=== PATIENT | male | born 1985 | race Caucasian/White ===

== ENCOUNTER 2016-07-07 23:13 | Emergency (ER) | payer OTHER ==
[2016-07-07 23:13] VITALS: BMI 33.0
--- NOTE | 2016-07-07 23:34 | C.PDOC ---
History Of Present Illness patient presents with left testicular pain radiating in to the left flank since yesterday. denies any trauma, heavy lifting. No f/c/n/v. No penile discharge Time Seen by Provider: 07/07/16 23:34 Chief Complaint (Nursing): Male Genitourinary History Per: Patient History/Exam Limitations: no limitations Onset/Duration Of Symptoms: Days (1) Current Symptoms Are (Timing): Still Present Severity: Mild Pain Scale Rating Of: 3 Quality Of Discomfort: Dull, Aching Associated Symptoms: denies: Fever, Chills, Nausea, Urinary Symptoms Alleviating Factors: None Recent travel outside of the [place]: No Additional History Per: Patient Past Medical History Reviewed: Historical Data, Nursing Documentation, Vital Signs Vital Signs: Last Vital Signs Temp 99.0 F 07/08/16 03:18 Pulse 78 07/08/16 03:18 Resp 18 07/08/16 03:18 BP 146/94 H 07/08/16 03:18 Pulse Ox 97 07/08/16 03:30 Family History: States: No Known Family Hx - Social History Hx Tobacco Use: No Hx Alcohol Use: Yes Hx Substance Use: No - Immunization History Hx Tetanus Toxoid Vaccination: No Hx Influenza Vaccination: No Hx Pneumococcal Vaccination: No Review Of Systems Constitutional: Negative for: Fever, Chills Respiratory: Negative for: Shortness of Breath Gastrointestinal: Positive for: Abdominal Pain. Negative for: Nausea, Vomiting Genitourinary: Positive for: Scrotal Pain. Negative for: Dysuria, Penile Discharge, Penile Pain Musculoskeletal: Positive for: Back Pain Skin: Negative for: Rash, Lesions, Jaundice Neurological: Negative for: Weakness Psych: Negative for: Anxiety Physical Exam - Physical Exam Appears: Non-toxic, No Acute Distress Skin: Warm, Dry Gastrointestinal/Abdominal: Soft, Tenderness (mild left flank tenderness), No Distention, No Guarding, No Rebound Male Genital: Testicular Tenderness (mild left), No Testicular Swelling, No Inguinal Tenderness, No Inguinal Swelling, No Scrotal Swelling, No Circumcised Extremity: Normal ROM Extremity: Bilateral: Atraumatic, Normal Color And Temperature Neurological/Psych: Oriented x3, Normal Speech, Normal Cognition Gait: Steady ED Course And Treatment - Laboratory Results Result Diagrams: 07/07/16 23:52 07/07/16 23:52 O2 Sat by Pulse Oximetry: 97 Pulse Ox Interpretation: Normal - Other Rad CT abd/pelvis with IV contrast X-Ray: Read By Radiologist Interpretation: IMPRESSION: 1. Possible mild enteritis. Clinical correlation is needed. 2. Incidental/non-acute findings are described above. - CT Scan/US US of scrotum Other Rad Studies (CT/US): Read By Radiologist, Radiology Report Reviewed CT/US Interpretation: IMPRESSION: 1. Small bilateral varicoceles. 2. Mild scrotal swelling. 3. 3 mm left epididymal head cyst. Progress Note: blood work, ivf, testicular US Reevaluation Time: 03:33 Reassessment Condition: Improved Medical Decision Making Medical Decision Making: Upon provider reevaluation patient is feeling better, is medically stable, and requires no further treatment in the ED at this time. Patient will be discharged home with Rx for flagyl. Counseling was provided and all questions were answered regarding diagnosis and need for follow up with the referred clinic. There is agreement to discharge plan. Return if symptoms persist or worsen. Disposition Counseled Patient/Family Regarding: Studies Performed, Diagnosis, Need For Followup - Disposition Referrals: [facility] [Outside] [facility] [Outside] Disposition: HOME/ ROUTINE Disposition Time: 23:34 Condition: FAIR Additional Instructions: Please return if symptoms recur Prescriptions: Metronidazole [Flagyl] 500 mg PO TID #21 tab Instructions: Abdominal Pain (ED), Enteritis (ED) - Clinical Impression Clinical Impression: Abdominal pain, Enteritis
[2016-07-07] MEDS ORDERED: Sodium Chloride 0.9% 1,000 ML IV ONE (23:37)
[2016-07-07 23:55] LABS: MEAN CORPUSCULAR HEMOGLOBIN 26.3 pg (27.0-31.0); MEAN PLATELET VOLUME 9.9 fL (7.2-11.7); WHITE BLOOD COUNT 3.4 K/uL (4.8-10.8)
[2016-07-07] MEDS ORDERED: Sodium Chloride 0.9% 1,000 ML ONE (23:58)
[2016-07-07 23:59] LABS: RBC URINE < 1 /hpf (0-3); URINE BACTERIA RARE (<OCC); URINE BILIRUBIN NEGATIVE (NEGATIVE); URINE BLOOD NEGATIVE (NEGATIVE); URINE COLOR Yellow (YELLOW); URINE GLUCOSE (UA) NORMAL (Normal); URINE KETONE TRACE mg/dL (NEGATIVE); URINE LEUKOCYTE ESTERASE NEG Leu/uL (Negative); URINE PROTEIN 1+ mg/dL (NEGATIVE); URINE UROBILINOGEN NORMAL mg/dL (0.2-1.0); WBC URINE < 1 /hpf (0-5)
[2016-07-08 00:02] LABS: BASO % 1.1 % (0.0-2.0); EOS % 0.6 % (0.0-4.0); HEMATOCRIT 45.3 % (35.0-51.0); LYMPH # 0.9 K/uL (1.0-4.3); MEAN CELL VOLUME 81.4 fL (80.0-94.0); MEAN CORPUSCULAR HGB CONC 32.3 g/dL (33.0-37.0); MONO # 0.8 K/uL (0.0-0.8); MONO % 22.8 % (0.0-10.0); PLATELET COUNT 150 K/uL (130-400); RED CELL DISTRIBUTION WIDTH 14.6 % (11.5-14.5)
[2016-07-08 00:03] LABS: CHLORIDE 93 mmol/L (98-107)
[2016-07-08 00:04] LABS: POTASSIUM 3.4 mmol/L (3.6-5.2); SODIUM 133 mmol/L (132-148)
[2016-07-08 00:06] LABS: ALB/GLOB RATIO 1.2 (1.0-2.1); ALKALINE PHOSPHATASE 73 U/L (38-126); AST/SGOT 32 U/L (17-59); BILIRUBIN,TOTAL 0.3 mg/dL (0.2-1.3); BLOOD UREA NITROGEN 16 mg/dL (9-20); CARBON DIOXIDE 26 mmol/L (22-30); GFR AFRICAN-AMERICAN > 60; TOTAL PROTEIN 7.8 g/dL (6.3-8.3)
[2016-07-08 00:07] LABS: ALT/SGPT 34 U/L (21-72); CALCIUM 8.5 mg/dl (8.6-10.4); GLUCOSE,RANDOM 92 mg/dL (75-110)
[2016-07-08 01:17] LABS: EOSINOPHIL 1 % (0-4); NEUTROPHIL 47 % (50-75); TOTAL CELLS COUNTED 100
[2016-07-08] MEDS ORDERED: Iodixanol 320 MG/ML 100 ML BOTTLE IV ONE (03:00)
--- NOTE | 2016-07-08 03:18 | CT ---
EXAM: CT Abdomen and Pelvis With Intravenous Contrast CLINICAL HISTORY: 30 years old, male; Pain; Abdominal pain; Localized; Left lower quadrant (llq); Additional info: Left abd pain TECHNIQUE: Axial computed tomography images of the abdomen and pelvis with intravenous contrast. This CT exam was performed using one or more of the following dose reduction techniques: automated exposure control, adjustment of the mA and/or kV according to patient size, and/or use of iterative reconstruction technique. Coronal and sagittal reformatted images were created and reviewed. CONTRAST: 100 mL of visipaque administered intravenously. COMPARISON: No relevant prior studies available. FINDINGS: Lower thorax: Probable small hiatal hernia. ABDOMEN: Liver: Unremarkable. No mass. Gallbladder and bile ducts: No calcified stones. No ductal dilation. Pancreas: No ductal dilation. No mass. Spleen: No splenomegaly. Adrenals: No mass. Kidneys and ureters: No mass. No hydronephrosis. Stomach and bowel: Apparent mild mural thickening of few jejunal loops. No associated inflammatory stranding. No obstruction. Appendix: Normal caliber. No inflammation. PELVIS: Bladder: Unremarkable. Reproductive: Unremarkable as visualized. ABDOMEN and PELVIS: Intraperitoneal space: No significant fluid collection. No free air. Bones/joints: No acute fracture. Soft tissues: Tiny umbilical hernia containing fat. Vasculature: Unremarkable. No abdominal aortic aneurysm. Lymph nodes: No pathologically enlarged lymph nodes. IMPRESSION: 1. Possible mild enteritis. Clinical correlation is needed. 2. Incidental/non-acute findings are described above.
[2016-07-08 03:19] VITALS: BP 146/94; PULSE 78; RESP 18; TEMP 99
[2016-07-08 03:31] VITALS: O2SAT 97
--- NOTE | 2016-07-08 10:28 | US ---
HISTORY: scrotal pain , left testicular pain TECHNIQUE: Realtime sonography through the scrotum with color and doppler flow. COMPARISON: None Available. FINDINGS: RIGHT TESTICLE: Measures 3.6 x 1.7 x 2.9 cm. Punctate calcifications seen. Otherwise Normal echotexture and flow. RIGHT EPIDIDYMIS: Epididymal head measures 1 x 1 x 1.2 cm. Punctate calcification seen. Otherwise grossly unremarkable appearance with normal flow. LEFT TESTICLE: Measures 3.3 x 1.5 x 2.8 cm. Normal echotexture and flow. LEFT EPIDIDYMIS: Epididymal head measures 0.8 x 0.3 x 1.1 cm. There is small epididymal cyst measures 0.3 x 0.3 x 0.3 centimeter. HYDROCELE: None. VARICOCELE: Mild bilateral varicoceles seen OTHER FINDINGS: None. IMPRESSION: No evidence of testicular torsion. Mild scrotal soft tissue swelling. Microcalcifications seen in both testes. Small cyst at the left epididymal head. Bilateral mild varicocele. Preliminary report was submitted by virtual Radiology.
== END 2016-07-08 03:54 | disposition home or self-care (01) ==
LOC: C.ER 23:13
DX: K52.9 Noninfective gastroenteritis and colitis, unspecified (principal); R10.32 Left lower quadrant pain
CPT/HCPCS: 74177; 76870; 80053; 81001; 83690; 85025; 96374; 99284; J1885; J7040; Q9967

== ENCOUNTER 2016-11-12 01:45 | Emergency (ER) | payer OTHER ==
[2016-11-12 01:45] VITALS: BMI 33.0
[2016-11-12 02:12] VITALS: RESP 20
[2016-11-12] MEDS ORDERED: Aspirin 325 mg EC Tablets PO STA (02:41)
[2016-11-12] MEDS ORDERED: Sodium Chloride 0.9% 1,000 ML IV ONE (02:41)
[2016-11-12] MEDS ORDERED: Alum-Mag Hydrox-Simethicone Susp (30 mL) PO STA (02:42)
[2016-11-12] MEDS ORDERED: Aluminum Hydroxide/Magnesium Hydroxide Susp (30 mL) ONE (03:02)
[2016-11-12] MEDS ORDERED: Sodium Chloride 0.9% 1,000 ML ONE (03:02)
[2016-11-12 03:13] LABS: BASO % 0.8 % (0.0-2.0); EOS # 0.1 K/uL (0.0-0.7); EOS % 1.4 % (0.0-4.0); HEMOGLOBIN 13.4 g/dL (12.0-18.0); LYMPH # 1.1 K/uL (1.0-4.3); LYMPH % 28.6 % (20.0-40.0); MEAN CELL VOLUME 82.7 fL (80.0-94.0); MEAN CORPUSCULAR HGB CONC 32.7 g/dL (33.0-37.0); MONO # 0.3 K/uL (0.0-0.8); MONO % 7.4 % (0.0-10.0); NEUT # 2.5 K/uL (1.8-7.0); NEUT % 61.8 % (50.0-75.0); RBC 4.97 Mil/uL (4.40-5.90)
[2016-11-12 03:16] LABS: ALBUMIN 3.9 g/dL (3.5-5.0)
[2016-11-12 03:19] LABS: ALB/GLOB RATIO 1.2 (1.0-2.1); ALT/SGPT 33 U/L (21-72); AST/SGOT 24 U/L (17-59); BLOOD UREA NITROGEN 12 mg/dL (9-20); GFR AFRICAN-AMERICAN > 60; GFR NON-AFRICAN AMERICAN > 60
[2016-11-12 03:20] LABS: CALCIUM 8.8 mg/dl (8.6-10.4)
--- NOTE | 2016-11-12 03:20 | C.PDOC ---
History Of Present Illness drinking alcohol and using cocaine today, burning chest sensation while sitting on sofa watching TV no radiation, no SOB + s/s RICKY Time Seen by Provider: 11/12/16 02:38 Chief Complaint (Nursing): Chest Pain History Per: Patient History/Exam Limitations: no limitations Onset/Duration Of Symptoms: Mins Current Symptoms Are (Timing): Better Context: Food Severity: Mild Pain Scale Rating Of: 2 Quality: Burning Exacerbating Factors: None Alleviating Factors: None Past Medical History Reviewed: Historical Data, Nursing Documentation, Vital Signs Vital Signs: Last Vital Signs Temp 98.7 F 11/12/16 03:48 Pulse 78 11/12/16 03:48 Resp 20 11/12/16 03:48 BP 147/85 11/12/16 03:48 Pulse Ox 99 11/12/16 04:42 Surgical History: No Surg Hx Family History: States: Unknown Family Hx - Social History Hx Tobacco Use: No Hx Alcohol Use: Yes Hx Substance Use: No - Immunization History Hx Tetanus Toxoid Vaccination: No Hx Influenza Vaccination: No Hx Pneumococcal Vaccination: No Review Of Systems Except As Marked, All Systems Reviewed And Found Negative. Constitutional: Positive for: Other (+RICKY) Physical Exam - Physical Exam Appears: Other (large, obese, thick neck) Skin: Normal Color Chest: Symmetrical Cardiovascular: Rhythm Regular Respiratory: Normal Breath Sounds Gastrointestinal/Abdominal: Normal Exam Neurological/Psych: Oriented x3 ED Course And Treatment - Laboratory Results Result Diagrams: 11/12/16 03:04 11/12/16 03:04 Lab Interpretation: Abnormal (trop and d-dimer neg, tox cocaine+) ECG: Interpreted By Ak ECG Rhythm: Sinus Tachycardia ECG Interpretation: Abnormal Rate From EC O2 Sat by Pulse Oximetry: 99 Pulse Ox Interpretation: Normal - Radiology CXR: Interpreted by Me CXR Interpretation: Yes: No Acute Disease Progress Note: 0300: esophageal burning relieved by Protonix/Maalox Reevaluation Time: 04:33 Reassessment Condition: Improved Medical Decision Making Medical Decision Makin: Maalox PO and protonix IV, s/s improved GERD, no ACS, RICKY needs eval and CPAP higher risk of ACS w comorbidities and cocaine abuse Disposition Doctor Will See Patient In The: Office Counseled Patient/Family Regarding: Studies Performed, Diagnosis - Disposition Referrals: Dk Linares MD [Staff Provider] - Georges Guerra MD [Staff Provider] - Disposition: HOME/ ROUTINE Disposition Time: 03:23 Condition: GOOD Additional Instructions: GERD: Protonix 20 mg daily to lower stomach acid GERD diet Maalox 30 cc (one tablespoon) 5x/day as needed for burning esophageal symptoms Loose weight Sleep Apnea: Call Dr. Linares to make appointment for a Sleep Study- he is a sleep staffing specialist and lung specialist Will help with weight loss, hypertension, heart damage, and daytime concentration Prescriptions: Pantoprazole Sodium [Protonix] 20 mg PO DAILY #30 ect Instructions: Sleep Apnea Syndrome (ED), Gastroesophageal Reflux Disease (ED) Forms: [facility] (Haitian), Work Excuse - Clinical Impression Clinical Impression: Chest discomfort, RICKY (obstructive sleep apnea), GERD (gastroesophageal reflux disease), Cocaine abuse
[2016-11-12 03:25] LABS: BENZODIAZEPINES, UR NEGATIVE (NEGATIVE)
[2016-11-12 03:26] LABS: BARBITURATES, UR NEGATIVE (NEGATIVE)
[2016-11-12 03:27] LABS: B-TYPE NATRIURETIC PEPTIDE 33.4 pg/mL (0-450)
[2016-11-12 03:28] LABS: OPIATES, UR NEGATIVE (NEGATIVE)
[2016-11-12 03:29] LABS: PHENCYCLIDINE, UR NEGATIVE (NEGATIVE)
[2016-11-12 03:49] VITALS: BP 147/85; PULSE 78; TEMP 98.7
[2016-11-12 04:34] VITALS: O2SAT 99
--- NOTE | 2016-11-12 09:08 | RAD ---
PROCEDURE: CHEST RADIOGRAPH, 1 VIEW HISTORY: Shortness of breath COMPARISON: None available. FINDINGS: LUNGS: No focal infiltrate or effusion. Small punctate nodular density at the left lung apex may represent confluence of shadows with overlying ribs. PLEURA: No pneumothorax or pleural fluid seen. CARDIOVASCULAR: Normal. OSSEOUS STRUCTURES: No significant abnormalities. VISUALIZED UPPER ABDOMEN: Normal. OTHER FINDINGS: None. IMPRESSION: No active disease.
--- NOTE | 2016-11-12 10:53 | CARD ---
APPROVED REPORT EKG Measurement Heart [id number] <Conclusion> Sinus tachycardia Otherwise normal ECG
== END 2016-11-12 04:46 | disposition home or self-care (01) ==
LOC: C.ER 01:45
DX: G47.33 Obstructive sleep apnea (adult) (pediatric) (principal); R07.9 Chest pain, unspecified; K21.9 Gastro-esophageal reflux disease without esophagitis; F14.10 Cocaine abuse, uncomplicated
CPT/HCPCS: 71010; 80053; 80320; 80324; 80345; 80346; 80349; 80353; 80358; 80361; 83880; 83992; 84484; 85025; 85378; 93005; 96361; 96374; 99284; C9113; J7040

== ENCOUNTER 2016-11-28 22:28 | Emergency (ER) | payer OTHER ==
[2016-11-28 22:29] VITALS: BMI 33.0
[2016-11-28 22:42] VITALS: TEMP 98.3
--- NOTE | 2016-11-28 22:50 | C.PDOC ---
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 This evening he suddenly noticed his heart was beating fast. He had a pounding in his chest associated with a full feeling. He denied shortness of breath, dizziness or nausea. He was not lightheaded. He went outside to rest but symptoms persisted. He denies any similar symptoms in the past. He has no recent URI symptoms or cough. He was recently evaluated in the ED and in follow up by Dr Flores and a cooking instructor for chest pain. he was started on Metoprolol but did not like the way it made him feel. He initially stopped the medication but was advised to restart it and try to taper off. He takes 1/2 a tablet a day. Time Seen by Provider: 11/28/16 22:41 Chief Complaint (Nursing): Palpitations History Per: Patient History/Exam Limitations: no limitations Onset/Duration Of Symptoms: Hrs Current Symptoms Are (Timing): Still Present Severity: Moderate Quality: Dull, Tightness Associated Symptoms: denies: Nausea, Dyspnea, Diaphoresis, Syncope Alleviating Factors: None Past Medical History Vital Signs: Last Vital Signs Temp 98.3 F 11/28/16 22:39 Pulse 65 11/28/16 23:28 Resp 10 L 11/28/16 23:28 BP 137/87 11/28/16 22:39 Pulse Ox 99 11/28/16 23:28 - Medical History PMH: No Chronic Diseases Surgical History: No Surg Hx Family History: States: Unknown Family Hx - Social History Hx Tobacco Use: No Hx Alcohol Use: Yes Hx Substance Use: No - Immunization History Hx Tetanus Toxoid Vaccination: No Hx Influenza Vaccination: No Hx Pneumococcal Vaccination: No Review Of Systems Except As Marked, All Systems Reviewed And Found Negative. Constitutional: Negative for: Fever Cardiovascular: Positive for: Chest Pain, Palpitations Respiratory: Negative for: Cough, Shortness of Breath, Pleuritic Pain, Wheezing Gastrointestinal: Negative for: Nausea, Abdominal Pain Physical Exam - Physical Exam Appears: Well, No Acute Distress Skin: Normal Color, Warm, Dry, No Diaphoretic Head: Atraumatic Eye(s): bilateral: Normal Inspection, PERRL, EOMI Oral Mucosa: Moist Chest: Symmetrical, No Deformity, No Tenderness Cardiovascular: Rhythm Regular, No Edema, No Murmur, No JVD Respiratory: Normal Breath Sounds, No Rales, No Rhonchi, No Wheezing Gastrointestinal/Abdominal: Normal Exam, Bowel Sounds, Soft, No Tenderness, No Distention, No Guarding Pulses: Left Carotid: Normal, Right Carotid: Normal Neurological/Psych: Oriented x3, Normal Speech, Normal Cognition, Normal Motor, Normal Sensation ED Course And Treatment - Laboratory Results Result Diagrams: 11/28/16 22:59 11/28/16 22:59 Lab Interpretation: Normal ECG: Interpreted By Me ECG Rhythm: Sinus Rhythm ECG Interpretation: No Acute Changes O2 Sat by Pulse Oximetry: 100 Pulse Ox Interpretation: Normal Reevaluation Time: 23:52 Reassessment Condition: Improved (heart rate 70. No chest pain) Disposition Counseled Patient/Family Regarding: Studies Performed, Diagnosis, Need For Followup - Disposition Referrals: Shaik Flores MD [Staff Provider] - Disposition: HOME/ ROUTINE Disposition Time: 23:52 Condition: STABLE Additional Instructions: Continue the Metoprolol until discussed with Cardiology Instructions: Palpitations (ED) Forms: [facility] (Ukrainian), Work Excuse - Clinical Impression Clinical Impression: Palpitations
[2016-11-28] MEDS ORDERED: Sodium Chloride 0.9% 1,000 ML IV ONE (22:52)
[2016-11-28] MEDS ORDERED: Sodium Chloride 0.9% 1,000 ML ONE (22:58)
[2016-11-28 23:03] LABS: BASO # 0.1 K/uL (0.0-0.2); BASO % 1.3 % (0.0-2.0); EOS # 0.2 K/uL (0.0-0.7); EOS % 4.2 % (0.0-4.0); HEMATOCRIT 42.6 % (35.0-51.0); LYMPH # 1.5 K/uL (1.0-4.3); LYMPH % 28.1 % (20.0-40.0); MEAN CELL VOLUME 82.4 fL (80.0-94.0); MEAN CORPUSCULAR HEMOGLOBIN 26.9 pg (27.0-31.0); MEAN CORPUSCULAR HGB CONC 32.7 g/dL (33.0-37.0); MEAN PLATELET VOLUME 10.1 fL (7.2-11.7); MONO # 0.6 K/uL (0.0-0.8); MONO % 12.1 % (0.0-10.0); NRBC % 0.1 % (0.0-2.0); RED CELL DISTRIBUTION WIDTH 14.1 % (11.5-14.5); WHITE BLOOD COUNT 5.3 K/uL (4.8-10.8)
[2016-11-28 23:08] LABS: CHLORIDE 100 mmol/L (98-107); POTASSIUM 3.6 mmol/L (3.6-5.2); SODIUM 135 mmol/L (132-148)
[2016-11-28 23:10] LABS: GFR AFRICAN-AMERICAN > 60
[2016-11-28 23:11] LABS: ALB/GLOB RATIO 1.4 (1.0-2.1); ALKALINE PHOSPHATASE 77 U/L (38-126); ALT/SGPT 32 U/L (21-72); AST/SGOT 17 U/L (17-59); BILIRUBIN,TOTAL 0.4 mg/dL (0.2-1.3); BLOOD UREA NITROGEN 19 mg/dL (9-20); CALCIUM 8.5 mg/dl (8.6-10.4); CARBON DIOXIDE 22 mmol/L (22-30); GLUCOSE,RANDOM 86 mg/dL (75-110); TOTAL PROTEIN 7.2 g/dL (6.3-8.3)
[2016-11-28 23:42] LABS: THYROID STIMULATING HORMONE 1.68 mIU/L (0.46-4.68)
[2016-11-28 23:52] VITALS: O2SAT 100
[2016-11-29 00:24] VITALS: BP 122/91; PULSE 60; RESP 12
--- NOTE | 2016-11-30 12:38 | CARD ---
APPROVED REPORT EKG Measurement Heart [id number] <Conclusion> Normal sinus rhythm Cannot rule out Anterior infarct, age undetermined Abnormal ECG
== END 2016-11-29 00:05 | disposition home or self-care (01) ==
LOC: C.ER 22:28
DX: R00.2 Palpitations (principal)
CPT/HCPCS: 80053; 84443; 85025; 85378; 93005; 96360; 99285; J7040

== ENCOUNTER 2017-01-06 11:21 | Emergency (ER) | payer OTHER ==
[2017-01-06 11:36] VITALS: BMI 35.1
[2017-01-06 12:24] LABS: BASO # 0.1 K/uL (0.0-0.2); BASO % 1.1 % (0.0-2.0); EOS # 0.3 K/uL (0.0-0.7); EOS % 6.2 % (0.0-4.0); HEMATOCRIT 43.2 % (35.0-51.0); LYMPH # 1.1 K/uL (1.0-4.3); MEAN CELL VOLUME 82.9 fL (80.0-94.0); MEAN CORPUSCULAR HEMOGLOBIN 27.5 pg (27.0-31.0); MEAN CORPUSCULAR HGB CONC 33.2 g/dL (33.0-37.0); MEAN PLATELET VOLUME 9.7 fL (7.2-11.7); MONO # 0.8 K/uL (0.0-0.8); MONO % 14.6 % (0.0-10.0); RED CELL DISTRIBUTION WIDTH 14.8 % (11.5-14.5); WHITE BLOOD COUNT 5.1 K/uL (4.8-10.8)
--- NOTE | 2017-01-06 12:48 | RAD ---
PROCEDURE: CHEST RADIOGRAPH, 1 VIEW HISTORY: chest pain COMPARISON: None available. FINDINGS: LUNGS: Clear. PLEURA: No pneumothorax or pleural fluid seen. CARDIOVASCULAR: Normal. OSSEOUS STRUCTURES: No significant abnormalities. VISUALIZED UPPER ABDOMEN: Normal. OTHER FINDINGS: None. IMPRESSION: No active disease.
--- NOTE | 2017-01-06 13:04 | C.PDOC ---
History Of Present Illness 31 year old male presents to the ED for evaluation of sudden onset of palpitations which began early this morning. Patient describes his symptoms as his "heart jumping out of his chest." Patient reports the palpitations woke him from his sleep. Patient also notes associated dizziness which occurs while walking. Patient reports the episode lasted a few minutes and then resolved. Patient reports he is asymptomatic currently in the ED. He denies chest pain, shortness of breath, cough, nausea, vomiting, extremity numbness/weakness. Time Seen by Provider: 01/06/17 11:32 Chief Complaint (Nursing): Chest Pain History Per: Patient History/Exam Limitations: no limitations Onset/Duration Of Symptoms: Mins Current Symptoms Are (Timing): Gone Quality: denies: "Pain" Associated Symptoms: denies: Nausea Additional History Per: Patient Past Medical History Reviewed: Historical Data, Nursing Documentation, Vital Signs Vital Signs: Last Vital Signs Temp Pulse 52 L 01/06/17 13:10 Resp 20 01/06/17 13:10 BP 140/84 01/06/17 13:10 Pulse Ox 100 01/06/17 14:14 - Medical History PMH: No Chronic Diseases Surgical History: No Surg Hx Family History: States: Unknown Family Hx - Social History Hx Tobacco Use: No Hx Alcohol Use: Yes (few drinks per day/daily) Hx Substance Use: No - Immunization History Hx Tetanus Toxoid Vaccination: No Hx Influenza Vaccination: No Hx Pneumococcal Vaccination: No Review Of Systems Cardiovascular: Positive for: Palpitations. Negative for: Chest Pain Respiratory: Negative for: Cough, Shortness of Breath Gastrointestinal: Negative for: Nausea, Vomiting Neurological: Positive for: Dizziness. Negative for: Weakness, Numbness Physical Exam - Physical Exam Appears: Non-toxic, No Acute Distress Skin: Normal Color, Warm, Dry, No Rash Head: Atraumatic, Normacephalic Eye(s): bilateral: Normal Inspection, PERRL, EOMI Oral Mucosa: Moist Throat: No Erythema, No Exudate Neck: Supple Chest: Symmetrical, No Deformity, No Tenderness Cardiovascular: Rhythm Regular, No Murmur, No JVD Respiratory: Normal Breath Sounds, No Rales, No Rhonchi, No Wheezing Gastrointestinal/Abdominal: Bowel Sounds (active), Soft, No Tenderness Extremity: Normal ROM, No Calf Tenderness, Capillary Refill (less than 2 seconds ), No Swelling Pulses: Left Radial: Normal, Right Radial: Normal, Left Dorsalis Pedis: Normal, Right Dorsalis Pedis: Normal Neurological/Psych: Oriented x3, Normal Speech, Normal Cognition, Normal Motor, Normal Sensation Gait: Steady ED Course And Treatment - Laboratory Results Result Diagrams: 01/06/17 12:17 10 12:17 ECG: Interpreted By Me, Viewed By Me ECG Rhythm: Sinus Rhythm Interpretation Of ECG: Normal Sinus Rhythm at rate 83bpm. Rate From EC (bpm) O2 Sat by Pulse Oximetry: 100 Pulse Ox Interpretation: Normal - Other Rad CXR X-Ray: Interpreted by Me, Viewed By Me, Read By Radiologist Interpretation: PROCEDURE: CHEST RADIOGRAPH, 1 VIEW. HISTORY: chest pain. COMPARISON: None available. FINDINGS: LUNGS: Clear. PLEURA: No pneumothorax or pleural fluid seen. CARDIOVASCULAR: Normal. OSSEOUS STRUCTURES: No significant abnormalities. VISUALIZED UPPER ABDOMEN: Normal. OTHER FINDINGS: None. IMPRESSION: No active disease. Medical Decision Making Medical Decision Making: Plan: * CXR * EKG * reassess and diposition Progress: The patient was in SR and (-) ectopy, on the cafeteria monitor. On re-exam, the patient reports improvement of symptoms. Lungs are CTA, heart is RRR, abdomen is soft, non-tender and tolerating PO well. Ambulatory in the ED steady. Follow up with the medical doctor within 1-2 days. Return if worsened. Disposition - Disposition Referrals: [facility] [Outside] Disposition: HOME/ ROUTINE Disposition Time: 14:12 Condition: GOOD Additional Instructions: Follow up with the medical doctor within 1-2 days. Return if worsened. 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 - Scribe Statement The provider has reviewed the documentation as recorded by the Scribe (Anastacia Dowell) All medical record entries made by the Scribe were at my direction and personally dictated by me. I have reviewed the chart and agree that the record accurately reflects my personal performance of the history, physical exam, medical decision making, and the department course for this patient. I have also personally directed, reviewed, and agree with the discharge instructions and disposition.
[2017-01-06 13:11] VITALS: RESP 20
[2017-01-06 13:22] LABS: CHLORIDE 98 mmol/L (98-107)
[2017-01-06 13:23] LABS: POTASSIUM 4.4 mmol/L (3.6-5.2); SODIUM 134 mmol/L (132-148)
[2017-01-06 13:25] LABS: ALB/GLOB RATIO 1.3 (1.0-2.1); ALKALINE PHOSPHATASE 62 U/L (38-126); AST/SGOT 35 U/L (17-59); BILIRUBIN,TOTAL 0.5 mg/dL (0.2-1.3); CARBON DIOXIDE 25 mmol/L (22-30); GFR AFRICAN-AMERICAN > 60
[2017-01-06 13:26] LABS: ALT/SGPT 39 U/L (21-72); BLOOD UREA NITROGEN 18 mg/dL (9-20); CALCIUM 8.8 mg/dl (8.6-10.4); GLUCOSE,RANDOM 91 mg/dL (75-110)
[2017-01-06 13:55] VITALS: BP 140/84; PULSE 52
[2017-01-06 14:14] VITALS: O2SAT 100
--- NOTE | 2017-01-08 18:45 | CARD ---
APPROVED REPORT EKG Measurement Heart [id number] [place] 154P54 [id number] <Conclusion> Normal sinus rhythm with sinus arrhythmia Normal ECG
== END 2017-01-06 14:22 | disposition home or self-care (01) ==
LOC: C.ER 11:21
DX: R00.2 Palpitations (principal)

== ENCOUNTER 2017-07-03 08:31 | Emergency (ER) | payer OTHER ==
[2017-07-03 08:31] VITALS: BMI 35.1
[2017-07-03 08:40] VITALS: RESP 20; TEMP 97.5
--- NOTE | 2017-07-03 09:04 | C.PDOC ---
History Of Present Illness 31 y/o male with history of Anxiety presents to ED with complaints of sob, palpitations and chest pain while driving son to school this morning. Patient reports he sometimes has high blood pressure but denies taking any medication. Patient is speaking in full sentences and denies cough, fever, chills, nausea, vomiting or any other complaints at this time. Time Seen by Provider: 07/03/17 08:34 Chief Complaint (Nursing): Chest Pain History Per: Patient History/Exam Limitations: no limitations Onset/Duration Of Symptoms: Hrs Current Symptoms Are (Timing): Still Present Past Medical History Reviewed: Historical Data, Nursing Documentation, Vital Signs Vital Signs: Last Vital Signs Temp 97.5 F L 07/03/17 08:39 Pulse 87 07/03/17 10:09 Resp 20 07/03/17 10:09 BP 149/95 H 07/03/17 10:09 Pulse Ox 98 07/03/17 10:27 - Medical History PMH: Anxiety Surgical History: No Surg Hx Family History: States: No Known Family Hx - Social History Hx Tobacco Use: No Hx Alcohol Use: Yes (few drinks per day/daily) Hx Substance Use: Yes - Immunization History Hx Tetanus Toxoid Vaccination: No Hx Influenza Vaccination: No Hx Pneumococcal Vaccination: No Review Of Systems Constitutional: Negative for: Fever, Chills Cardiovascular: Positive for: Chest Pain, Palpitations Respiratory: Positive for: Shortness of Breath. Negative for: Cough Gastrointestinal: Negative for: Nausea, Vomiting Skin: Negative for: Rash Physical Exam - Physical Exam Appears: Non-toxic, No Acute Distress Skin: Warm, Dry, No Rash Head: Atraumatic, Normacephalic Eye(s): bilateral: Normal Inspection Oral Mucosa: Moist Neck: Normal ROM, Supple Cardiovascular: Rhythm Regular Respiratory: Normal Breath Sounds, No Rales, No Rhonchi, No Wheezing Gastrointestinal/Abdominal: Soft, No Tenderness, No Guarding, No Rebound Extremity: Normal ROM, Capillary Refill (<2 seconds) Neurological/Psych: Oriented x3, Normal Speech ED Course And Treatment - Laboratory Results Result Diagrams: 07/03/17 09:11 07/03/17 09:11 Lab Interpretation: Normal ECG: Interpreted By De ECG Rhythm: Sinus Rhythm ECG Interpretation: No Acute Changes Rate From EC O2 Sat by Pulse Oximetry: 98 (RA) Pulse Ox Interpretation: Normal - Radiology CXR: Interpreted by Me CXR Interpretation: Yes: No Acute Disease Progress Note: CXR, ECG, Blood work, UA ordered Reassessment Condition: Improved Disposition Counseled Patient/Family Regarding: Studies Performed, Diagnosis, Need For Followup - Disposition Referrals: [facility] [Outside] [facility] [Outside] Disposition: HOME/ ROUTINE Disposition Time: 10:40 Condition: STABLE Additional Instructions: Return to ED if any increase symptoms Instructions: Palpitations (DC) Forms: [employer] [facility] (Bruneian), Work Excuse - POA Present On Arrival: None - Clinical Impression Clinical Impression: Palpitations - 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 - Scribe Statement The provider has reviewed the documentation as recorded by the Scriblamin Mosher All medical record entries made by the Shuiblamin were at my direction and personally dictated by me. I have reviewed the chart and agree that the record accurately reflects my personal performance of the history, physical exam, medical decision making, and the department course for this patient. I have also personally directed, reviewed, and agree with the discharge instructions and disposition.
--- NOTE | 2017-07-03 09:08 | RAD ---
HISTORY: SOB COMPARISON: Chest radiograph dated 01/06/2017 TECHNIQUE: Chest PA and lateral FINDINGS: LUNGS: No active pulmonary disease. PLEURA: No significant pleural effusion identified. No pneumothorax apparent. CARDIOVASCULAR: Normal. OSSEOUS STRUCTURES: No significant abnormalities. VISUALIZED UPPER ABDOMEN: Normal. OTHER FINDINGS: None. IMPRESSION: No active disease.
[2017-07-03 09:14] LABS: EOS # 0.3 K/uL (0.0-0.7); EOS % 7.1 % (0.0-4.0); HEMOGLOBIN 14.6 g/dL (12.0-18.0); LYMPH # 1.2 K/uL (1.0-4.3); LYMPH % 25.1 % (20.0-40.0); MEAN CELL VOLUME 84.5 fL (80.0-94.0); MEAN CORPUSCULAR HEMOGLOBIN 28.2 pg (27.0-31.0); MEAN CORPUSCULAR HGB CONC 33.4 g/dL (33.0-37.0); MEAN PLATELET VOLUME 9.7 fL (7.2-11.7); MONO # 0.5 K/uL (0.0-0.8); MONO % 11.3 % (0.0-10.0); NEUT # 2.6 K/uL (1.8-7.0); NEUT % 55.5 % (50.0-75.0); NRBC % 0.1 % (0.0-2.0); RBC 5.17 Mil/uL (4.40-5.90); RED CELL DISTRIBUTION WIDTH 14.9 % (11.5-14.5); WHITE BLOOD COUNT 4.7 K/uL (4.8-10.8)
[2017-07-03 09:32] LABS: ALB/GLOB RATIO 1.2 (1.0-2.1); ALBUMIN 4.3 g/dL (3.5-5.0); ALT/SGPT 22 U/L (21-72); AST/SGOT 26 U/L (17-59); BLOOD UREA NITROGEN 16 mg/dL (9-20); GFR AFRICAN-AMERICAN > 60; GFR NON-AFRICAN AMERICAN > 60; LIPASE 77 U/L (23-300)
[2017-07-03 09:42] LABS: CK-MB 1.14 ng/mL (0.0-3.38)
[2017-07-03 09:45] LABS: URINE BILIRUBIN NEGATIVE (NEGATIVE); URINE BLOOD NEGATIVE (NEGATIVE); URINE CLARITY Clear (Clear); URINE COLOR Yellow (YELLOW); URINE GLUCOSE (UA) NORMAL (Normal); URINE LEUKOCYTE ESTERASE NEG Leu/uL (Negative); URINE PROTEIN NEGATIVE (NEGATIVE); URINE UROBILINOGEN NORMAL mg/dL (0.2-1.0)
[2017-07-03 10:09] VITALS: BP 149/95; PULSE 87
[2017-07-03 10:28] VITALS: O2SAT 98
--- NOTE | 2017-07-04 15:02 | CARD ---
APPROVED REPORT EKG Measurement Heart [id number] [place] [id number] <Conclusion> Normal sinus rhythm with sinus arrhythmia Left anterior fascicular block Abnormal ECG
== END 2017-07-03 10:46 | disposition home or self-care (01) ==
LOC: C.ER 08:31
DX: R00.2 Palpitations (principal)

== ENCOUNTER 2017-10-11 11:22 | Emergency (ER) | payer OTHER ==
[2017-10-11 11:26] VITALS: BMI 35.4
[2017-10-11 11:31] VITALS: RESP 18; O2SAT 100
--- NOTE | 2017-10-11 12:08 | C.PDOC ---
History Of Present Illness 32yo male with no past medical history, comes to ER for evaluation stating he has "fluttering in chest." Patient states he has been overly concerned about cardiac problems for some time. Patient has been to [facility] ER multiple times over the past 3 years and 2x this year with cardiac complaints; patient has had EKG and labs done which were all normal. He states he has followed up with a parts room associate, had a stress test and an echocardiogram, which were both normal. PAtient also had a halter monitor test but does not have the results on hand. He states he measures his "EKG" on a phone joy and is concerned he might have "PVC's" or arrhythmia; patient also states his heart rate is in the low 50' s in the morning and is high during the end of the day. Patient states he started a new exercise program, stopped drinking alcohol and smoking cigarettes as well; he does admit to using marijuana. Patient denies any fever, chills, chest pain, shortness of breath, weakness, dizziness. He has no other complaints. Time Seen by Provider: 10/11/17 11:32 Chief Complaint (Nursing): Chest Pain History Per: Patient History/Exam Limitations: no limitations Onset/Duration Of Symptoms: Persistent Current Symptoms Are (Timing): Still Present Associated Symptoms: denies: Nausea, Dyspnea, Diaphoresis, Syncope Additional History Per: Patient Past Medical History Reviewed: Historical Data, Nursing Documentation, Vital Signs Vital Signs: Last Vital Signs Temp 98.8 F 10/11/17 11:26 Pulse 82 10/11/17 11:26 Resp 18 10/11/17 11:26 BP 157/93 H 10/11/17 11:26 Pulse Ox 100 10/11/17 12:10 - Medical History PMH: Anxiety Surgical History: No Surg Hx Family History: States: No Known Family Hx, Unknown Family Hx - Social History Hx Tobacco Use: No Hx Alcohol Use: No (FORMER PER PATIENT) Hx Substance Use: Yes (MARIJUANA) - Immunization History Hx Tetanus Toxoid Vaccination: No Hx Influenza Vaccination: No Hx Pneumococcal Vaccination: No Review Of Systems Except As Marked, All Systems Reviewed And Found Negative. Constitutional: Negative for: Fever, Chills, Weakness Cardiovascular: Positive for: Other ("fluttering"). Negative for: Chest Pain, Light Headedness Respiratory: Negative for: Shortness of Breath Physical Exam - Physical Exam Appears: Non-toxic, No Acute Distress, Other (mildly overweight) Skin: Warm, Dry Head: Atraumatic, Normacephalic Eye(s): bilateral: Normal Inspection Neck: Supple Chest: Symmetrical, No Deformity, No Tenderness Cardiovascular: Rhythm Regular, No Murmur Respiratory: Normal Breath Sounds, No Wheezing Neurological/Psych: Oriented x3, Normal Speech, Normal Cognition, Normal Motor, Normal Sensation ED Course And Treatment O2 Sat by Pulse Oximetry: 100 (RA) Pulse Ox Interpretation: Normal Medical Decision Making Medical Decision Making: Progress: -- Called patient's parts room associate at 1151 but unable to get in touch. 1207 Cardiac strip run for 5 minutes, 3 PVC's noted. Disposition Counseled Patient/Family Regarding: Diagnosis, Need For Followup - Disposition Disposition: HOME/ ROUTINE Disposition Time: 12:15 Condition: STABLE Additional Instructions: Please follow up with your parts room associate for halter monitor results Forms: [employer] (Canadian), General Discharge Instructions - Clinical Impression Clinical Impression: Asymptomatic PVCs - Scribe Statement The provider has reviewed the documentation as recorded by the Apple Abdi Provider Attestation: All medical record entries made by the Apple were at my direction and personally dictated by me. I have reviewed the chart and agree that the record accurately reflects my personal performance of the history, physical exam, medical decision making, and the department course for this patient. I have also personally directed, reviewed, and agree with the discharge instructions and disposition.
[2017-10-11 12:44] VITALS: BP 144/88; PULSE 66; TEMP 98.1
== END 2017-10-11 12:32 | disposition home or self-care (01) ==
LOC: C.ER 11:22
DX: I49.3 Ventricular premature depolarization (principal)

== ENCOUNTER 2018-07-03 02:17 | Emergency (ER) | payer OTHER ==
[2018-07-03 02:24] VITALS: BMI 28.0
[2018-07-03 02:31] VITALS: O2SAT 99
--- NOTE | 2018-07-03 03:35 | C.PDOC ---
History Of Present Illness 32 year old male presents to the ED c/o pain and swelling to his left knee since yesterday. Patient reports he was playing basketball yesterday when he twisted his left knee. Patient noticed worsening swelling to his left knee. Patient denies LOC, headache, head trauma, weakness, numbness. Time Seen by Provider: 07/03/18 02:39 Chief Complaint (Nursing): Lower Extremity Problem/Injury History Per: Patient History/Exam Limitations: no limitations Onset/Duration Of Symptoms: Days (1) Current Symptoms Are (Timing): Still Present Recent travel outside of the [place]: No Additional History Per: Patient - Knee Description Of Injury: Twisted Past Medical History Reviewed: Historical Data, Nursing Documentation, Vital Signs Vital Signs: Last Vital Signs Temp 97.9 F 07/03/18 02:26 Pulse 107 H 07/03/18 02:26 Resp 16 07/03/18 02:26 BP 153/98 H 07/03/18 02:26 Pulse Ox 99 07/03/18 02:26 - Medical History PMH: Anxiety Surgical History: No Surg Hx Family History: States: Unknown Family Hx - Social History Hx Tobacco Use: No Hx Alcohol Use: Yes (FORMER PER PATIENT) Hx Substance Use: No (pt denies) - Immunization History Hx Tetanus Toxoid Vaccination: No Hx Influenza Vaccination: No Hx Pneumococcal Vaccination: No Review Of Systems Constitutional: Negative for: Fever, Chills Gastrointestinal: Negative for: Vomiting, Abdominal Pain Musculoskeletal: Positive for: Leg Pain. Negative for: Back Pain Skin: Negative for: Rash Neurological: Negative for: Weakness, Numbness, Headache, Dizziness Physical Exam - Physical Exam Appears: Non-toxic, No Acute Distress Skin: Normal Color, Warm, Dry Head: Atraumatic, Normacephalic Eye(s): bilateral: Normal Inspection Neck: Normal ROM, Supple Extremity: Normal ROM (left knee limited due to pain, remainder of extremities normal), Tenderness (anterior aspect left knee), Capillary Refill (< 2 seconds), Swelling (anterior aspect left knee), Other (no crepitus, erythema, ecchymosis, gross effusion.) Pulses: Left Dorsalis Pedis: Normal, Right Dorsalis Pedis: Normal Neurological/Psych: Oriented x3, Normal Speech, Normal Cognition Gait: Steady (with a limp) ED Course And Treatment O2 Sat by Pulse Oximetry: 99 (ON RA) Pulse Ox Interpretation: Normal - Other Rad Left knee X-Ray X-Ray: Interpreted by Me, Viewed By Me Interpretation: No fracture or dislocation seen Progress Note: Plan: - Motrin 800 mg PO. - Left knee X-Ray. Imaging results were discussed with patient. Patient was placed on a knee brace for support. Patient was advised to use NSAIDs for pain management and to follow up with PMD/Ortho Disposition - Disposition Referrals: eHnrik Oviedo III, MD [Staff Provider] - Disposition: HOME/ ROUTINE Disposition Time: 04:07 Condition: STABLE Additional Instructions: Elevate leg / Apply ICE Take motrin for pain Return to ER if worse Prescriptions: Ibuprofen [Motrin] 600 mg PO Q6H #20 tab Instructions: Knee Sprain (DC) Forms: [employer] (Wol[place]) - Clinical Impression Clinical Impression: Left knee sprain - PA / POULTRY PINNER / Resident 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 - Scribe Statement The provider has reviewed the documentation as recorded by the Scribe Antelmo Amaro All medical record entries made by the Scribe were at my direction and personally dictated by me. I have reviewed the chart and agree that the record accurately reflects my personal performance of the history, physical exam, medical decision making, and the department course for this patient. I have also personally directed, reviewed, and agree with the discharge instructions and disposition.
[2018-07-03 04:44] VITALS: BP 148/92; PULSE 99; RESP 20; TEMP 98
--- NOTE | 2018-07-03 08:46 | RAD ---
Date of service: 07/03/2018 PROCEDURE: Left Knee Radiographs. HISTORY: Pain. COMPARISON: None. TECHNIQUE: 2 views obtained. FINDINGS: BONES: Normal. No fracture. JOINTS: Mild osteoarthritis. Tibial spine spurring noted JOINT EFFUSION: None. OTHER FINDINGS: None. IMPRESSION: Mild osteoarthrosis.
== END 2018-07-03 04:39 | disposition home or self-care (01) ==
LOC: C.ER 02:17
DX: S83.92XA Sprain of unspecified site of left knee, initial encounter (principal); X50.1XXA Overexertion from prolonged static or awkward postures, initial encounter; Y93.67 Activity, basketball

== ENCOUNTER 2018-08-14 14:00 | Emergency (ER) | payer OTHER ==
[2018-08-14 14:03] VITALS: BMI 35.6
[2018-08-14 14:11] VITALS: O2SAT 99
[2018-08-14] MEDS ORDERED: Sodium Chloride 0.9% 1,000 ML IV ONE (14:23)
--- NOTE | 2018-08-14 14:33 | C.PDOC ---
History Of Present Illness 32 y/o male presents to the ER complaining of abdominal pain and back pain which began in the morning today. Patient states that he has associated nausea, vomiting, and diarrhea. Patient reports that he consumed large quantity of ETOH yesterday. Denies having fever,chills, dysuria, hematuria, and bowel/bladder incontinence. Time Seen by Provider: 08/14/18 14:15 Chief Complaint (Nursing): Abdominal Pain History Per: Patient History/Exam Limitations: no limitations Onset/Duration Of Symptoms: Hrs Current Symptoms Are (Timing): Still Present Severity: Moderate Past Medical History Reviewed: Historical Data, Nursing Documentation, Vital Signs Vital Signs: Last Vital Signs Temp 98.7 F 08/14/18 14:03 Pulse 108 H 08/14/18 14:03 Resp 19 08/14/18 14:03 BP 150/102 H 08/14/18 14:03 Pulse Ox 99 08/14/18 14:03 Primary Care Provider: FAMILY PROVIDER,NO - Medical History PMH: No Chronic Diseases Denies: Anxiety (DENIES 08/14/18) Surgical History: No Surg Hx Family History: States: No Known Family Hx - Social History Hx Tobacco Use: No Hx Alcohol Use: Yes (FORMER PER PATIENT) Hx Substance Use: No (pt denies) - Immunization History Hx Tetanus Toxoid Vaccination: No Hx Influenza Vaccination: No Hx Pneumococcal Vaccination: No Review Of Systems Except As Marked, All Systems Reviewed And Found Negative. Constitutional: Negative for: Fever, Chills Gastrointestinal: Positive for: Abdominal Pain. Negative for: Nausea, Vomiting, Diarrhea Genitourinary: Negative for: Dysuria, Frequency, Incontinence, Hematuria Musculoskeletal: Positive for: Back Pain Physical Exam - Physical Exam Appears: Non-toxic, No Acute Distress Skin: Normal Color, Warm, Dry Head: Atraumatic, Normacephalic Eye(s): bilateral: Normal Inspection Nose: Normal Oral Mucosa: Moist Neck: Supple Chest: Symmetrical Cardiovascular: Rhythm Regular Respiratory: Normal Breath Sounds, No Rales, No Rhonchi, No Wheezing Gastrointestinal/Abdominal: Soft, Tenderness (bilateral flank tenderness), No Guarding, No Rebound Neurological/Psych: Oriented x3, Normal Speech ED Course And Treatment - Laboratory Results Result Diagrams: 08/14/18 14:33 08/14/18 14:33 O2 Sat by Pulse Oximetry: 99 (RA) Pulse Ox Interpretation: Normal Medical Decision Making Medical Decision Making: ro gastriits pancreatis renal colic Plan: --Labs --UA --CT-Abd & Pelv. --IV Fluids --Zofran IV --Toradol PO labs imaging neg. pain resolved. asking for dc. Disposition - Disposition Referrals: [facility] [Outside] [facility] [Outside] Eric Portillo MD [Staff Provider] - Disposition: HOME/ ROUTINE Disposition Time: 14:00 Condition: STABLE Additional Instructions: please see specialist. return to er with worsening. Prescriptions: Pantoprazole Sodium [Protonix] 40 mg PO DAILY #20 ect Instructions: Acute Abdomen (Belly Pain) Forms: [employer] ([place]) - Clinical Impression Clinical Impression: Abdominal pain - Scribe Statement The provider has reviewed the documentation as recorded by the Scribe Karissa Leung Provider Attestation: All medical record entries made by the Scribe were at my direction and personally dictated by me. I have reviewed the chart and agree that the record a ccurately reflects my personal performance of the history, physical exam, medical decision making, and the department course for this patient. I have also personally directed, reviewed, and agree with the discharge instructions and disposition.
[2018-08-14 14:37] LABS: BASO % 0.4 % (0.0-2.0); EOS % 0.1 % (0.0-4.0); HEMOGLOBIN 14.6 g/dL (12.0-18.0); LYMPH # 0.1 K/uL (1.0-4.3); LYMPH % 1.9 % (20.0-40.0); MEAN CELL VOLUME 85.8 fL (80.0-94.0); MEAN CORPUSCULAR HEMOGLOBIN 28.5 pg (27.0-31.0); MEAN CORPUSCULAR HGB CONC 33.2 g/dL (33.0-37.0); MEAN PLATELET VOLUME 9.2 fL (7.2-11.7); MONO # 0.5 K/uL (0.0-0.8); MONO % 6.9 % (0.0-10.0); NEUT # 6.3 K/uL (1.8-7.0); NEUT % 90.7 % (50.0-75.0); PLATELET COUNT 188 K/uL (130-400); RBC 5.11 Mil/uL (4.40-5.90); RED CELL DISTRIBUTION WIDTH 14.5 % (11.5-14.5); WHITE BLOOD COUNT 6.9 K/uL (4.8-10.8)
[2018-08-14 14:45] LABS: PROTHROMBIN TIME 11.2 SECONDS (9.7-12.2)
[2018-08-14 14:52] LABS: ALB/GLOB RATIO 1.3 (1.0-2.1); ALBUMIN 4.4 g/dL (3.5-5.0); ALT/SGPT 32 U/L (21-72); AST/SGOT 34 U/L (17-59); BLOOD UREA NITROGEN 16 mg/dL (9-20); CALCIUM 9.2 mg/dl (8.6-10.4); GFR NON-AFRICAN AMERICAN > 60; LIPASE 40 U/L (23-300)
[2018-08-14 15:03] LABS: URINE BILIRUBIN NEGATIVE (NEGATIVE); URINE BLOOD NEGATIVE (NEGATIVE); URINE CLARITY Clear (Clear); URINE COLOR Yellow (YELLOW); URINE GLUCOSE (UA) NORMAL (Normal); URINE LEUKOCYTE ESTERASE NEG Leu/uL (Negative); URINE PROTEIN 1+ mg/dL (NEGATIVE); URINE UROBILINOGEN NORMAL mg/dL (0.2-1.0)
[2018-08-14 15:05] LABS: BANDS 4 % (0-2); LYMPHOCYTE 2 % (20-40); MONOCYTE 11 % (0-10); NEUTROPHIL 83 % (50-75); PLATELET ESTIMATE NORMAL (NORMAL); TOTAL CELLS COUNTED 100
--- NOTE | 2018-08-14 15:41 | CT ---
Date of service: 08/14/2018 PROCEDURE: CT Abdomen and Pelvis without intravenous contrast HISTORY: b/l flank pain COMPARISON: 07/08/2016 TECHNIQUE: Without contrast.. Contrast dose: 0 Radiation dose: Total exam DLP = 1315.62 mGy-cm. This CT exam was performed using one or more of the following dose reduction techniques: Automated exposure control, adjustment of the mA and/or kV according to patient size, and/or use of iterative reconstruction technique. FINDINGS: LOWER THORAX: Unremarkable. LIVER: Unremarkable. No gross lesion or ductal dilatation. GALLBLADDER AND BILE DUCTS: Unremarkable. PANCREAS: Unremarkable. No gross lesion or ductal dilatation. SPLEEN: Unremarkable. ADRENALS: Unremarkable. No mass. KIDNEYS AND URETERS: No mass, calculus or hydronephrosis. No hydroureter or ureteral calculus. VASCULATURE: Unremarkable. No aortic aneurysm. No aortic atherosclerotic calcification or mural plaque present. BOWEL: Unremarkable. No obstruction. No gross mural thickening. APPENDIX: Unremarkable. Normal appendix. PERITONEUM: Unremarkable. No free fluid. No free air. LYMPH NODES: Unremarkable. No enlarged lymph nodes. BLADDER: Nondistended REPRODUCTIVE: Small prostate BONES: No acute fracture. OTHER FINDINGS: None. IMPRESSION: Unremarkable examination. No evidence of urinary calculus or urinary tract obstruction.
[2018-08-14 15:49] VITALS: BP 129/92; PULSE 102; RESP 18; TEMP 99
== END 2018-08-14 15:49 | disposition home or self-care (01) ==
LOC: C.ER 14:00
DX: R10.9 Unspecified abdominal pain (principal)
CPT/HCPCS: 74176; 80053; 81001; 83690; 85025; 85610; 85730; 96361; 96374; 99284; J2405; J7030